=== PATIENT | female | born 1970 | race Caucasian/White ===

== ENCOUNTER → 2016-09-19 | Outpatient (CLI) | payer OTHER ==
[~2016-09-19] MED LIST: BUPR100T6; DESV100T; IBUP200C6
== END | disposition home or self-care (01) ==
LOC: CFH 12:14
DX: Z12.31 Encounter for screening mammogram for malignant neoplasm of breast (principal)
CPT/HCPCS: G0202

== ENCOUNTER 2016-10-23 21:06 | Emergency (ER) | payer OTHER ==
[~2016-10-23] VITALS: Ht 157.5 cm; Wt 98.7 kg
[2016-10-23 21:57] LABS: PATH.CAST-FLAG NOT PRESENT; SPERM-FLAG NOT PRESENT; SRC-FLAG NOT PRESENT; XTAL-FLAG NOT PRESENT; YLC-FLAG NOT PRESENT
[2016-10-23 21:57] LABS: HEMATOCRIT 39.7 % (34.6-47.8); HEMOGLOBIN 12.8 g/dL (11.7-16.4); WHITE BLOOD COUNT 9.8 x10^3/uL (3.4-10)
[2016-10-23 22:07] LABS: BLOOD UREA NITROGEN 13 mg/dL (7-18)
[2016-10-23 22:10] LABS: ASPARTATE AMINO TRANSFERASE 27 U/L (15-37)
[2016-10-24 00:09] VITALS: BP 168/94
== END 2016-10-24 00:11 | disposition home or self-care (01) ==
LOC: ED 21:59
DX: K29.00 Acute gastritis without bleeding (principal); N30.00 Acute cystitis without hematuria; I10 Essential (primary) hypertension; Z90.710 Acquired absence of both cervix and uterus
CPT/HCPCS: 36415; 76700; 80053; 81001; 83690; 85025; 87077; 87086; 87186; 99285

== ENCOUNTER 2018-07-23 17:36 | Emergency (ER) | payer OTHER ==
[~2018-07-23] VITALS: Ht 157.5 cm; Wt 87.7 kg
[2018-07-23 17:38] VITALS: BP 156/91
[2018-07-23] MEDS ORDERED: METHOCARBAMOL 750 MG TABLET ONE (17:57)
[2018-07-23] MEDS ORDERED: ONDANSETRON ODT 4 MG ONE (17:57)
[2018-07-23] MEDS ORDERED: KETOROLAC 30 MG/1 ML ONE (17:57)
[2018-07-23] MEDS ORDERED: LISI-167 PO (18:00)
[2018-07-23] MEDS ORDERED: [UNRECOGNIZED DRUG - REMARK] (18:00)
[2018-07-23] MEDS ORDERED: KETOROLAC 30 MG/1 ML IM ONE (18:00)
[2018-07-23] MEDS ORDERED: ONDANSETRON ODT 4 MG PO ONE (18:00)
[2018-07-23] MEDS ORDERED: HYDROCHLOROTH12.5 MG PO (18:00)
[2018-07-23] MEDS ORDERED: METHOCARBAMOL 750 MG TABLET PO ONE (18:00)
== END 2018-07-23 20:01 | disposition home or self-care (01) ==
LOC: ED 19:45
DX: M62.838 Other muscle spasm (principal); M62.830 Muscle spasm of back; I10 Essential (primary) hypertension; Z90.710 Acquired absence of both cervix and uterus
CPT/HCPCS: 71101; 72072; 72125; 73030; 96372; 99284; J1885; Q0162

== ENCOUNTER 2018-10-08 06:54 | Outpatient (CLI) | payer OTHER | END 2018-10-08 23:59 | disposition home or self-care (01) | LOC: CFH 06:54 | PROVIDERS: ATTEND Family Medicine | DX: Z12.31 Encounter for screening mammogram for malignant neoplasm of breast (principal); K43.9 Ventral hernia without obstruction or gangrene | CPT/HCPCS: 76705; 77067 ==